=== PATIENT | female | born 2000 | race Two or more races ===

== ENCOUNTER 2019-05-10 10:41 | Emergency (ER) | payer SELFPAY ==
[~2019-05-10] VITALS: Ht 152.4 cm; Wt 46.3 kg
[2019-05-10 10:41] VITALS: BP 133/86
--- NOTE | 2019-05-10 11:15 | NUR ---
Patient discharged to home in stable condition. Written and verbal after care instructions given. Patient verbalizes understanding of instruction.
== END 2019-05-10 11:32 | disposition home or self-care (01) ==
LOC: ER 10:42
DX: R06.02 Shortness of breath (principal)